=== PATIENT | female | born 1985 | race Caucasian/White ===

== ENCOUNTER 2018-05-27 17:21 | Emergency (ER) | payer SELFPAY ==
[2016-11-25 11:00] VITALS: BP 140/100
[~2018-05-27 17:21] MED LIST: ACET325T9 PO; ALPR0.5T6 PO; ASPI1TAB62 PO; CEPH500C PO; METO-269 PO; NAPR-682 PO; PROM12.56 PO; TRAM-48 PO
[2018-05-27] MEDS ORDERED: AZIT250T6 PO (20:33)
[2018-05-27] MEDS ORDERED: PROAIR HFA8.5 GM INH (20:33)
== END 2018-05-27 17:47 | disposition left against medical advice (07) ==
LOC: ER 17:21
DX: R05 Cough (principal); Z53.21 Procedure and treatment not carried out due to patient leaving prior to being seen by health care provider

== ENCOUNTER 2018-05-27 19:07 | Emergency (ER) | payer SELFPAY ==
[~2018-05-27] VITALS: Ht 165.1 cm; Wt 86.2 kg
[2018-05-27] MEDS: IPRATRPIUM/ALBUTEROL 0.5/2.5MG 3 ML NEBU. NEB ONE (20:11)
--- NOTE | 2018-05-27 20:19 | PHYS DOC ---
Past Medical History Past Medical History: Asthma, Other Additional Past Medical Histor: endometriosis; prolonged QT, uncontrolled HTN Past Surgical History: Tonsillectomy, Tubal ligation, Other Additional Past Surgical Histo: left ankle surgery, d&C Alcohol Use: Occasionally Drug Use: Marijuana Adult General Chief Complaint Chief Complaint: HYPERTENSION HPI HPI Patient is a 33 year old female who presents with her daughter and mother both diagnosed with bacterial pneumonia today. She then stated that she tried to get into see her mom's doctor but they could not get her into next week. Patient states that the last 7 days she's had a cough producing yellow thick phlegm, body aches, headache, chills. Patient states she hasn't been taking anything. Patient states that she has history of asthma so she's been using her albuterol inhaler but states she is only been having to use it about twice a week. Patient states she also has a history of hypertension and anxiety. Patient states that she has a very high blood pressure when she [facility] So she decided to come to the ED. Patient does state that she has right mid chest pain has been there for over a week. Review of Systems Review of Systems Constitutional: Denies fever. chills [] Eyes: Denies change in visual acuity, redness, or eye pain [] HENT: Denies nasal congestion or sore throat [] Respiratory: cough and shortness of breath [] Cardiovascular: No additional information not addressed in HPI [] GI: Denies abdominal pain, nausea, vomiting, bloody stools or diarrhea [] : Denies dysuria or hematuria [] Musculoskeletal: Denies back pain or joint pain [] Integument: Denies rash or skin lesions [] Neurologic: Denies headache, focal weakness or sensory changes [] Endocrine: Denies polyuria or polydipsia [] All other systems were reviewed and found to be within normal limits, except as documented in this note. Current Medications Current Medications Current Medications Medications (Trade) Dose Ordered Sig/Heber Start Time Stop Time Status Last Admin Dose Admin Albuterol/ Ipratropium (Duoneb) 3 ml 1X ONCE 05/27/18 20:15 05/27/18 20:16 DC 05/27/18 20:11 3 ML Dexamethasone (Decadron) 8 mg 1X ONCE 05/27/18 20:15 05/27/18 20:16 DC Allergies Allergies Allergies Coded Allergies Type Severity Reaction Last Updated Verified No Known Drug Allergies 07/09/15 No Physical Exam Physical Exam Constitutional: Well developed, well nourished, no acute distress, non-toxic appearance. [] HENT: Normocephalic, atraumatic, bilateral external ears normal, oropharynx moist, no oral exudates, nose normal. [] Eyes: PERRLA, EOMI, conjunctiva normal, no discharge. [] Neck: Normal range of motion, no tenderness, supple, no stridor. [] Cardiovascular:Heart rate regular rhythm, no murmur [] Lungs & Thorax: Bilateral breath sounds expiratory wheezes throughout. [] Abdomen: Bowel sounds normal, soft, no tenderness, no masses, no pulsatile masses. [] Skin: Warm, dry, no erythema, no rash. [] Back: No tenderness, no CVA tenderness. [] Extremities: No tenderness, no cyanosis, no clubbing, ROM intact, no edema. [] Neurologic: Alert and oriented X 3, normal motor function, normal sensory function, no focal deficits noted. [] Psychologic: Affect normal, judgement normal, mood normal. [] Current Patient Data Vital Signs Vital Signs Date Time Temp Pulse Resp B/P (MAP) Pulse Ox O2 Delivery O2 Flow Rate FiO2 05/27/18 20:11 Room Air 05/27/18 19:18 98.3 90 18 174/106 (128) 98 98.3 EKG EKG Sinus Rhythm, no stemi[] Interpretation Time: [address] Esparza Radiology/Procedures Radiology/Procedures Chest xray Impressions: [facility] [address] [place], [place] [id number] IMAGING REPORT Signed PATIENT: LILIANA MAGDALENO ACCOUNT: [id number] : 1985 LOCATION: ER AGE: 33 SEX: F EXAM STATUS: REG ER ORD. PHYSICIAN: LUIS ENRIQUE CHENEY APRN REASON: COUGH, SOA PROCEDURE: CHEST PA & LATERAL PROCEDURE: CHEST PA LATERAL CLINICAL INDICATION: Cough with chest pain and short of breath x a week COMPARISON: 11/23/2016 FINDINGS: No pneumothorax identified. Cardiac and mediastinal contours unremarkable. No pulmonary consolidation or acute airspace disease. No acute osseous abnormalities identified. IMPRESSION: No pulmonary consolidation or acute airspace disease. Electronically signed by: Levi Acharya DO (05/27/2018 8:18 PM) [facility] DICTATED and SIGNED BY: LEVI ACHARYA DO DATE: 05/27/182016 Course & Med Decision Making Course & Med Decision Making Patient is a 33 year old female who presents with her daughter and mother both diagnosed with bacterial pneumonia today. She then stated that she tried to get into see her mom's doctor but they could not get her into next week. Patient states that the last 7 days she's had a cough producing yellow thick phlegm, body aches, headache, chills. Patient states she hasn't been taking anything. Patient states that she has history of asthma so she's been using her albuterol inhaler but states she is only been having to use it about twice a week. Patient states she also has a history of hypertension and anxiety. Patient states that she has a very high blood pressure when she [facility] So she decided to come to the ED. Patient does state that she has right mid chest pain has been there for over a week. Expiratory wheezes throughout all lung landers. Heart rate regular without murmur. EKG shows normal sinus rhythm and no STEMI. Blood pressure is currently 174/106. 99% on room air and a heart rate of 80. Patient is told that she pressure needs to start going back to a doctor and been put back on her hypertensive medications. She has no extremity edema. Patient states that she is not really here for her high blood pressure she is only here because she wants to make sure she doesn't have pneumonia. Patient is alert and oriented. Skin is warm and dry. Chest xray shows no acute findings. Patient will be diagnosed with probable bronchitis. I will give her antibiotic and a prescription for pro air. Ravin Disclaimer Shadion Disclaimer This electronic medical record was generated, in whole or in part, using a voice recognition dictation system. Departure Departure Impression: Primary Impression: Bronchitis Disposition: HOME, SELF-CARE Condition: STABLE Referrals: NO PCP (PCP) Patient Instructions: Acute Bronchitis Additional Instructions: Follow up with a primary care as soon as possible for continuation of care for your hypertension ans asthma. Stop smoking. Scripts Albuterol Sulfate (PROAIR HFA INHALER) 8.5 Gm Hfa.aer.ad 1 PUFF INH PRN Q6HRS PRN for SHORTNESS OF BREATH, #1 INHALER 0 Refills Prov: LUIS ENRIQUE CHENEY APRN 05/27/18 Azithromycin (AZITHROMYCIN TABLET) 250 Mg Tablet 1 PKG PO UD, #6 TAB Prov: LUIS ENRIQUE CHENEY APRN 05/27/18 LUIS ENRIQUE CHENEY APRN May 27, 2018 20:19
[2018-05-27] MEDS: DEXAMETHASONE 4 MG TABLET PO ONE (20:33)
[2018-05-27] MEDS ORDERED: PROAIR HFA8.5 GM INH (20:33)
[2018-05-27] MEDS ORDERED: AZIT250T6 PO (20:33)
[2018-05-27 21:15] LABS: INFLUENZA A PATIENT NEGATIVE (NEGATIVE); INFLUENZA B PATIENT NEGATIVE (NEGATIVE)
[2018-05-27 21:18] VITALS: BP 110/56
--- NOTE | 2018-05-28 05:52 | EKG ---
[facility] [address] [place] [address] Test Date: 2018-05-27 Test Time: 19:34:44 Pat Name: LILIANA MAGDALENO Department: Room: Gender: F Tool Machine Setup Operator: : 1985 Requested By: LUIS ENRIQUE CHENEY Order Number: [id number] Reading MD: Jose Alfredo Hamlin Measurements Intervals [place] Rate: 80 P: 25 MA: 140 QRS: 16 QRSD: 94 T: 8 QT: 378 QTc: 440 Interpretive Statements SINUS RHYTHM NO SPECIFIC ECG ABNORMALITIES Electronically Signed On 06-03-2018 11:03:45 DIRECTOR OF CARDIOLOGY by Jose Alfredo Hamlin
== END 2018-05-27 21:43 | disposition home or self-care (01) ==
LOC: ER 19:07
DX: J40 Bronchitis, not specified as acute or chronic (principal); J45.909 Unspecified asthma, uncomplicated; I10 Essential (primary) hypertension
CPT/HCPCS: 71046; 87804; 93005; 94640; 99284; J7620; J8540; 99283

== ENCOUNTER 2018-11-25 21:42 | Emergency (ER) | payer BC ==
[~2018-11-25] VITALS: Ht 165.1 cm; Wt 104.3 kg
[~2018-11-25 21:42] MED LIST changes: +ALBU2.5V8 INH; +AZIT250T6 PO; -PROM12.56 PO; +PROM12.58 PO
[2018-11-25 21:50] VITALS: BP 203/122
[2018-11-25] MEDS ORDERED: LIDO:MAALOX 1:1 20 ML SINGLE DOSE. SWSW ONE (22:30)
[2018-11-25] MEDS ORDERED: FAMOTIDINE 20 MG/2 ML VIAL IVP ONE (22:30)
--- NOTE | 2018-11-25 22:50 | RAD ---
EXAM: Abdomen sonogram. HISTORY: Pain. TECHNIQUE: Sonographic imaging of the abdomen was performed. COMPARISON: None. FINDINGS: The liver is enlarged. There is hepatic steatosis. No focal hepatic lesion is seen. The gallbladder is contracted, limiting evaluation. The common bile duct is normal in caliber. The right kidney, pancreas, aorta and inferior vena cava are unremarkable. IMPRESSION: 1. Hepatomegaly and hepatic steatosis. 2. Contracted gallbladder due to the postprandial status the patient. This limits evaluation. Electronically signed by: Sari Diaz MD (11/25/2018 10:47 PM) [facility]
[2018-11-25 22:58] LABS: BASO # 0.1 x10^3/uL (0.0-0.2); BASO % 1 % (0-3); EOS # 0.6 x10^3/uL (0.0-0.7); EOS % 6 % (0-3); HEMATOCRIT 40.2 % (36.0-47.0); HEMOGLOBIN 13.9 g/dL (12.0-15.5); LYMPH # 3.9 x10^3/uL (1.0-4.8); LYMPH % 41 % (24-48); MEAN CORPUSCULAR HEMOGLOBIN 32 pg (25-35); MEAN CORPUSCULAR HGB CONC 35 g/dL (31-37); MEAN CORPUSCULAR VOLUME 93 fL (79-100); MONO # 0.5 x10^3/uL (0.0-1.1); MONO % 5 % (0-9); NEUT # 4.5 x10^3uL (1.8-7.7); NEUT % 47 % (31-73); PLATELET COUNT 260 x10^3/uL (140-400); RED BLOOD COUNT 4.35 x10^6/uL (3.50-5.40); RED CELL DISTRIBUTION WIDTH 12.7 % (11.5-14.5); WHITE BLOOD COUNT 9.6 x10^3/uL (4.0-11.0)
--- NOTE | 2018-11-25 23:21 | PHYS DOC ---
Past Medical History Past Medical History: Asthma, Other Additional Past Medical Histor: endometriosis; prolonged QT, uncontrolled HTN Past Surgical History: Tonsillectomy, Tubal ligation, Other Additional Past Surgical Histo: left ankle surgery, d&C Alcohol Use: Occasionally Drug Use: Marijuana Adult General Chief Complaint Chief Complaint: ABDOMINAL PAIN HPI HPI 33-year-old female presents with epigastric pain. She states been going on for several days. She states she has a burning sensation that radiates up into her chest and she has a sour taste in her mouth when she wakes up in the morning. She states this is been going on for quite some time. As of breath. She denies any melena or hematemesis. She states she's had her gallbladder looked at a long time ago but this turned up negative.[] Review of Systems Review of Systems Constitutional: Denies fever or chills [] Eyes: Denies change in visual acuity, redness, or eye pain [] HENT: Denies nasal congestion or sore throat [] Respiratory: Denies cough or shortness of breath [] Cardiovascular: No additional information not addressed in HPI [] GI: Per history of present illness[] : Denies dysuria or hematuria [] Musculoskeletal: Denies back pain or joint pain [] Integument: Denies rash or skin lesions [] Neurologic: Denies headache, focal weakness or sensory changes [] Endocrine: Denies polyuria or polydipsia [] All other systems were reviewed and found to be within normal limits, except as documented in this note. Current Medications Current Medications Current Medications Medications (Trade) Dose Ordered Sig/Heber Start Time Stop Time Status Last Admin Dose Admin Famotidine (Pepcid Vial) 20 mg 1X ONCE 11/25/18 22:30 11/25/18 22:31 DC 11/25/18 22:48 20 MG Multi-Ingredient Mouthwash/Gargle (Gi Cocktail) 20 ml 1X ONCE 11/25/18 22:30 11/25/18 22:31 DC 11/25/18 22:48 20 ML Allergies Allergies Allergies Coded Allergies Type Severity Reaction Last Updated Verified No Known Drug Allergies 07/09/15 No Physical Exam Physical Exam Constitutional: Well developed, well nourished, no acute distress, non-toxic appearance. [] HENT: Normocephalic, atraumatic, bilateral external ears normal, oropharynx moist, no oral exudates, nose normal. [] Eyes: PERRLA, EOMI, conjunctiva normal, no discharge. [] Neck: Normal range of motion, no tenderness, supple, no stridor. [] Cardiovascular:Heart rate regular rhythm, no murmur [] Lungs & Thorax: Bilateral breath sounds clear to auscultation [] Abdomen: Mild epigastric tender to palp negative Odonnell's[] Skin: Warm, dry, no erythema, no rash. [] Back: No tenderness, no CVA tenderness. [] Extremities: No tenderness, no cyanosis, no clubbing, ROM intact, no edema. [] Neurologic: Alert and oriented X 3, normal motor function, normal sensory function, no focal deficits noted. [] Psychologic: Anxious. [] Current Patient Data Vital Signs Vital Signs Date Time Temp Pulse Resp B/P (MAP) Pulse Ox O2 Delivery O2 Flow Rate FiO2 11/25/18 21:50 98.1 86 24 203/122 (149) 98 Room Air 98.1 Lab Values Laboratory Tests Test 11/25/18 21:51 11/25/18 22:43 11/25/18 23:45 POC Urine HCG, Qualitative Hcg negative (Negative) White Blood Count 9.6 x10^3/uL (4.0-11.0) Red Blood Count 4.35 x10^6/uL (3.50-5.40) Hemoglobin 13.9 g/dL (12.0-15.5) Hematocrit 40.2 % (36.0-47.0) Mean Corpuscular Volume 93 fL (79-100) Mean Corpuscular Hemoglobin 32 pg (25-35) Mean Corpuscular Hemoglobin Concent 35 g/dL (31-37) Red Cell Distribution Width 12.7 % (11.5-14.5) Platelet Count 260 x10^3/uL (140-400) Neutrophils (%) (Auto) 47 % (31-73) Lymphocytes (%) (Auto) 41 % (24-48) Monocytes (%) (Auto) 5 % (0-9) Eosinophils (%) (Auto) 6 % (0-3) H Basophils (%) (Auto) 1 % (0-3) Neutrophils # (Auto) 4.5 x10^3uL (1.8-7.7) Lymphocytes # (Auto) 3.9 x10^3/uL (1.0-4.8) Monocytes # (Auto) 0.5 x10^3/uL (0.0-1.1) Eosinophils # (Auto) 0.6 x10^3/uL (0.0-0.7) Basophils # (Auto) 0.1 x10^3/uL (0.0-0.2) Sodium Level 141 mmol/L (136-145) Potassium Level 4.0 mmol/L (3.5-5.1) Chloride Level 106 mmol/L (98-107) Carbon Dioxide Level 24 mmol/L (21-32) Anion Gap 11 (6-14) Blood Urea Nitrogen 12 mg/dL (7-20) Creatinine 0.8 mg/dL (0.6-1.0) Estimated GFR (Cockcroft-Gault) 83.1 BUN/Creatinine Ratio 15 (6-20) Glucose Level 88 mg/dL (70-99) Calcium Level 8.6 mg/dL (8.5-10.1) Total Bilirubin 0.2 mg/dL (0.2-1.0) Aspartate Amino Transferase (AST) 13 U/L (15-37) L Alanine Aminotransferase (ALT) 37 U/L (14-59) Alkaline Phosphatase 61 U/L (46-116) Total Protein 6.1 g/dL (6.4-8.2) L Albumin 3.4 g/dL (3.4-5.0) Albumin/Globulin Ratio 1.3 (1.0-1.7) Lipase 205 U/L (73-393) Laboratory Tests 11/25/18 22:43 Laboratory Tests 11/25/18 23:45 EKG EKG [] Radiology/Procedures Radiology/Procedures [] Impressions: STATUS: REG ERORD. PHYSICIAN: ESTRADA WILDER DO REASON: RUQ Pain PROCEDURE: ABDOMEN LTD EXAM: Abdomen sonogram. HISTORY: Pain. TECHNIQUE: Sonographic imaging of the abdomen was performed. COMPARISON: None. FINDINGS: The liver is enlarged. There is hepatic steatosis. No focal hepatic lesion is seen. The gallbladder is contracted, limiting evaluation. The common bile duct is normal in caliber. The right kidney, pancreas, aorta and inferior vena cava are unremarkable. IMPRESSION: 1. Hepatomegaly and hepatic steatosis. 2. Contracted gallbladder due to the postprandial status the patient. This limits evaluation. Course & Med Decision Making Course & Med Decision Making Pertinent Labs and Imaging studies reviewed. (See chart for details) [] Dragon Disclaimer Dragon Disclaimer This electronic medical record was generated, in whole or in part, using a voice recognition dictation system. Departure Departure Impression: Primary Impression: Abdominal pain Additional Impression: Hypertension Referrals: NO PCP (PCP) Patient Instructions: Gastritis, Adult Additional Instructions: Return to the emergency department with any new or concerning symptoms Scripts Lisinopril/Hydrochlorothiazide (LISINOPRIL-HCTZ 20-12.5 MG TAB) 1 Each Tablet 1 TAB PO DAILY, #30 TAB 5 Refills Prov: ESTRADA WILDER DO 11/26/18 Ranitidine Hcl (ZANTAC) 300 Mg Tablet 1 TAB PO QHS for reflux, #90 TAB 3 Refills Prov: ESTRADA WILDER DO 11/26/18 Problem Qualifiers Primary Impression: Abdominal pain Abdominal location: epigastric Qualified Codes: R10.13 - Epigastric pain Additional Impression: Hypertension Hypertension type: essential hypertension Qualified Codes: I10 - Essential (primary) hypertension ESTRADA WILDER DO Nov 25, 2018 23:21
[2018-11-25 23:54] LABS: CALCIUM 8.6 mg/dL (8.5-10.1); CREATININE 0.8 mg/dL (0.6-1.0); GFR 83.1
[2018-11-26] LABS: ALBUMIN 3.4 g/dL (3.4-5.0); ALBUMIN/GLOBULIN RATIO 1.3 (1.0-1.7); TOTAL BILIRUBIN 0.2 mg/dL (0.2-1.0); TOTAL PROTEIN 6.1 g/dL (6.4-8.2)
[2018-11-26] MEDS ORDERED: LISI1TAB5 PO (00:18)
[2018-11-26] MEDS ORDERED: RANI300T3 PO (00:18)
== END 2018-11-26 00:40 | disposition home or self-care (01) ==
LOC: ER 21:42
DX: R10.13 Epigastric pain (principal); K76.0 Fatty (change of) liver, not elsewhere classified; I10 Essential (primary) hypertension; J45.909 Unspecified asthma, uncomplicated; Z90.89 Acquired absence of other organs; Z98.51 Tubal ligation status
CPT/HCPCS: 36415; 76705; 80053; 81025; 83690; 85025; 96374; 99285; J3490

== ENCOUNTER 2019-11-10 16:38 | Emergency (ER) | payer SELFPAY ==
[~2019-11-10] VITALS: Ht 165.1 cm; Wt 86.0 kg
[~2019-11-10 16:38] MED LIST changes: +LISI1TAB19 PO; +RANI300T3 PO
[2019-11-10] MEDS ORDERED: TRAM50TA PO (17:01)
[2019-11-10] MEDS ORDERED: PRED-220 PO (17:01)
[2019-11-10] MEDS ORDERED: ACYC800T PO (17:01)
--- NOTE | 2019-11-10 17:01 | PHYS DOC ---
Past Medical History Past Medical History: Asthma, Other Additional Past Medical Histor: endometriosis; prolonged QT, uncontrolled HTN Past Surgical History: Tonsillectomy, Tubal ligation, Other Additional Past Surgical Histo: left ankle surgery, d&C Smoking Status: Current Every Day Smoker Alcohol Use: Occasionally Drug Use: Marijuana General Adult EDM: Chief Complaint: SKIN RASH/ABSCESS HPI: HPI: Patient is a 34 year old female who presents to the ED today complaining of a rash on her right buttock and lower abdomen that began yesterday, patient denies any fever. Review of Systems: Review of Systems: Constitutional: Denies fever or chills. [] Musculoskeletal: Denies back pain or joint pain. [] Integument: Reports rash. Neurologic: Denies headache, focal weakness or sensory changes. [] Psychiatric: Denies depression or anxiety. [] Heart Score: Risk Factors: Risk Factors: DM, Current or recent (<one month) smoker, HTN, HLP, family history of CAD, obesity. Risk Scores: Score 0 - 3: 2.5% MACE over next 6 weeks - Discharge Home Score 4 - 6: 20.3% MACE over next 6 weeks - Admit for Clinical Observation Score 7 - 10: 72.7% MACE over next 6 weeks - Early Invasive Strategies Allergies: Allergies: Allergies Coded Allergies Type Severity Reaction Last Updated Verified No Known Drug Allergies 07/09/15 No Physical Exam: PE: Constitutional: Well developed, well nourished, no acute distress, non-toxic appearance. [] Abdomen: Bowel sounds normal, soft, no tenderness, no masses, no pulsatile masses. [] Skin: Warm, dry, right lateral hip/buttock region and right lower quadrant with grouped erythematous lesions consistent with shingles. Back: No tenderness, no CVA tenderness. [] Extremities: No tenderness, no cyanosis, no clubbing, ROM intact, no edema. [] Neurologic: Alert and oriented X 3, normal motor function, normal sensory function, no focal deficits noted. [] Psychologic: Affect normal, judgement normal, mood normal. [] EKG: EKG: [] Radiology/Procedures: Radiology/Procedures: [] Course & Med Decision Making: Course & Med Decision Making Pertinent Labs and Imaging studies reviewed. (See chart for details) This is a 34-year-old female patient with shingles. Discharged with acyclovir prednisone and tramadol. Follow-up with PCP in 2 weeks. Ravin Disclaimer: Ravin Disclaimer: This electronic medical record was generated, in whole or in part, using a voice recognition dictation system. Departure Departure Impression: Primary Impression: Shingles Qualified Codes: B02.9 - Zoster without complications Disposition: 01 HOME, SELF-CARE Condition: STABLE Referrals: NO PCP (PCP) follow with your doctor in 2 weeks Patient Instructions: Shingles, [id number] Additional Instructions: You were seen for shingles. Take the prescribed medications as ordered, follow- up with your doctor in 1 to 2 weeks. Scripts Prednisone (PREDNISONE ) 10 Mg Tablet 10 MG PO UD for PREDNISONE TAPER, #39 TAB 0 Refills Take 3 tablets by mouth twice a day for 3 days, then take 2 tablets by mouth twice a day for 3 days, then take 1 tablet by mouth twice a day for 3 days, then take 1 tablet by mouth daily x 3 days, then stop. Prov: MARIA EUGENIA MCMAHON APRN 520/20 Acyclovir (ACYCLOVIR) 800 Mg Tablet 1 TAB PO 5XDAY, #50 TAB Prov: MARIA EUGENIA MCMAHON APRN 5/20/20 Tramadol Hcl (TRAMADOL HCL) 50 Mg Tablet 50 MG PO Q6HRS PRN for PAIN, #30 TAB Prov: MARIA EUGENIA MCMAHON APRN 20/20 MARIA EUGENIA MCMAHON APRN November 10, 2019 17:01
[2019-11-10 17:03] VITALS: BP 161/105
== END 2019-11-10 17:12 | disposition home or self-care (01) ==
LOC: ER 16:38
DX: B02.9 Zoster without complications (principal); L53.9 Erythematous condition, unspecified; J45.909 Unspecified asthma, uncomplicated; F17.200 Nicotine dependence, unspecified, uncomplicated; F12.90 Cannabis use, unspecified, uncomplicated; I10 Essential (primary) hypertension; Z90.89 Acquired absence of other organs; Z98.51 Tubal ligation status; Z98.890 Other specified postprocedural states
CPT/HCPCS: 99283

== ENCOUNTER 2019-12-01 16:41 | Emergency (ER) | payer SELFPAY ==
[~2019-12-01] VITALS: Ht 165.1 cm; Wt 88.6 kg
[~2019-12-01 16:41] MED LIST changes: +ACYC800T PO; +PRED-220 PO; +TRAM50TA PO
[2019-12-01 17:54] LABS: BASO # 0.1 x10^3/uL (0.0-0.2); BASO % 1 % (0-3); EOS % 0 % (0-3); HEMATOCRIT 43.8 % (36.0-47.0); LYMPH # 1.9 x10^3/uL (1.0-4.8); LYMPH % 21 % (24-48); MEAN CORPUSCULAR HEMOGLOBIN 33 pg (25-35); MEAN CORPUSCULAR HGB CONC 34 g/dL (31-37); MEAN CORPUSCULAR VOLUME 97 fL (79-100); MONO # 0.3 x10^3/uL (0.0-1.1); MONO % 3 % (0-9); NEUT # 6.8 x10^3/uL (1.8-7.7); NEUT % 75 % (31-73); PLATELET COUNT 280 x10^3/uL (140-400); RED BLOOD COUNT 4.53 x10^6/uL (3.50-5.40); RED CELL DISTRIBUTION WIDTH 13.1 % (11.5-14.5); WHITE BLOOD COUNT 9.1 x10^3/uL (4.0-11.0)
[2019-12-01 18:06] LABS: CALCIUM 8.3 mg/dL (8.5-10.1); GFR 63.9; POTASSIUM 3.9 mmol/L (3.5-5.1)
[2019-12-01 18:21] LABS: CREATINE KINASE 59 U/L (26-192)
[2019-12-01 18:25] LABS: ALBUMIN 3.4 g/dL (3.4-5.0); ALBUMIN/GLOBULIN RATIO 1.1 (1.0-1.7); C-REACTIVE PROTEIN 3.7 mg/L (0-3.3); MAGNESIUM 1.8 mg/dL (1.8-2.4); TOTAL BILIRUBIN 0.2 mg/dL (0.2-1.0); TOTAL PROTEIN 6.4 g/dL (6.4-8.2)
--- NOTE | 2019-12-01 18:54 | RAD ---
Study: CR PORTABLE CHEST 1V Indication: Shortness of air. Comparison: 05/27/2018 Findings: Unchanged cardiomediastinal silhouette and eduin. No lobar consolidation, pleural effusion or pneumothorax. Impression: No acute radiographic abnormality of the chest. No significant change since 05/27/2018. Electronically signed by: HOLLIE LOCKE MD (12/01/2019 6:51 PM) [id number]
[2019-12-01 19:30] VITALS: BP 190/115
[2019-12-01] MEDS ORDERED: cloNIDine HCL 0.1 MG TABLET PO ONE (19:30)
[2019-12-01] MEDS ORDERED: ACETAMINOPHEN 325 MG TABLET. PO ONE (19:30)
[2019-12-01] MEDS ORDERED: VENTOLIN HFA18 GM INH (20:07)
--- NOTE | 2019-12-01 20:08 | PHYS DOC ---
Past Medical History Past Medical History: Asthma, Hypertension, Other Additional Past Medical Histor: endometriosis; prolonged QT, uncontrolled HTN Past Surgical History: Tonsillectomy, Tubal ligation, Other Additional Past Surgical Histo: left ankle surgery, d&C Smoking Status: Current Every Day Smoker Alcohol Use: Occasionally Drug Use: Marijuana General Adult EDM: Chief Complaint: SHORTNESS OF BREATH HPI: HPI: Patient is a 34 year old female with history of asthma, HTN who presents to the ED today with multiple complaints including shortness of breath, cough, headache, dizziness, weakness, symptoms began yesterday. Patient is very concerned she has COVID19, she states she works at [employer] with multiple employees that are positive for COVID19. She states one of the employees was admitted at [facility] today. She states her job refused to pay for some of her testing, they sent her to an outpatient drive-through test area, she somehow went to the health department who sent her to the ED. Patient appears anxious. Review of Systems: Review of Systems: Constitutional: Reports weakness. Denies fever or chills. [] Eyes: Denies change in visual acuity. [] HENT: Denies nasal congestion or sore throat. [] Respiratory: reports cough and shortness of breath. [] Cardiovascular: Denies chest pain or edema. [] GI: Denies abdominal pain, nausea, vomiting, bloody stools or diarrhea. [] : Denies dysuria. [] Musculoskeletal: Denies back pain or joint pain. [] Integument: Denies rash. [] Neurologic: Reports dizziness. Denies headache, focal weakness or sensory changes. [] Endocrine: Denies polyuria or polydipsia. [] Lymphatic: Denies swollen glands. [] Psychiatric: appears anxious Heart Score: Risk Factors: Risk Factors: DM, Current or recent (<one month) smoker, HTN, HLP, family history of CAD, obesity. Risk Scores: Score 0 - 3: 2.5% MACE over next 6 weeks - Discharge Home Score 4 - 6: 20.3% MACE over next 6 weeks - Admit for Clinical Observation Score 7 - 10: 72.7% MACE over next 6 weeks - Early Invasive Strategies Current Medications: Current Medications Medications (Trade) Dose Ordered Sig/Heber Start Time Stop Time Status Last Admin Dose Admin Acetaminophen (Tylenol) 650 mg 1X ONCE 12/01/19 19:30 6/10/20 19:31 DC 12/01/19 19:30 650 MG Clonidine HCl (Catapres) 0.1 mg 1X ONCE 12/01/19 19:30 12/01/19 19:31 DC 12/01/19 19:30 0.1 MG Allergies: Allergies: Allergies Coded Allergies Type Severity Reaction Last Updated Verified No Known Drug Allergies 07/09/15 No Physical Exam: PE: Constitutional: Well developed, well nourished, no acute distress, non-toxic appearance. [] HENT: Normocephalic, atraumatic, bilateral external ears normal, oropharynx moist, no oral exudates, nose normal. [] Eyes: PERRLA, EOMI, conjunctiva normal, no discharge. [] Neck: Normal range of motion, no tenderness, supple, no stridor. [] Cardiovascular:Heart rate regular rhythm, no murmur [] Lungs & Thorax: Bilateral breath sounds clear to auscultation [] Abdomen: Bowel sounds normal, soft, no tenderness, no masses, no pulsatile masses. [] Skin: Warm, dry, no erythema, no rash. [] Back: No tenderness, no CVA tenderness. [] Extremities: No tenderness, no cyanosis, no clubbing, ROM intact, no edema. [] Neurologic: Alert and oriented X 3, normal motor function, normal sensory function, no focal deficits noted. [] Psychologic: Affect normal, judgement normal, mood normal. [] Current Patient Data: Labs: Laboratory Tests Test 12/01/19 17:30 White Blood Count 9.1 x10^3/uL (4.0-11.0) Red Blood Count 4.53 x10^6/uL (3.50-5.40) Hemoglobin 15.0 g/dL (12.0-15.5) Hematocrit 43.8 % (36.0-47.0) Mean Corpuscular Volume 97 fL (79-100) Mean Corpuscular Hemoglobin 33 pg (25-35) Mean Corpuscular Hemoglobin Concent 34 g/dL (31-37) Red Cell Distribution Width 13.1 % (11.5-14.5) Platelet Count 280 x10^3/uL (140-400) Neutrophils (%) (Auto) 75 % (31-73) H Lymphocytes (%) (Auto) 21 % (24-48) L Monocytes (%) (Auto) 3 % (0-9) Eosinophils (%) (Auto) 0 % (0-3) Basophils (%) (Auto) 1 % (0-3) Neutrophils # (Auto) 6.8 x10^3/uL (1.8-7.7) Lymphocytes # (Auto) 1.9 x10^3/uL (1.0-4.8) Monocytes # (Auto) 0.3 x10^3/uL (0.0-1.1) Eosinophils # (Auto) 0.0 x10^3/uL (0.0-0.7) Basophils # (Auto) 0.1 x10^3/uL (0.0-0.2) Sodium Level 141 mmol/L (136-145) Potassium Level 3.9 mmol/L (3.5-5.1) Chloride Level 106 mmol/L (98-107) Carbon Dioxide Level 22 mmol/L (21-32) Anion Gap 13 (6-14) Blood Urea Nitrogen 12 mg/dL (7-20) Creatinine 1.0 mg/dL (0.6-1.0) Estimated GFR (Cockcroft-Gault) 63.9 BUN/Creatinine Ratio 12 (6-20) Glucose Level 134 mg/dL (70-99) H Calcium Level 8.3 mg/dL (8.5-10.1) L Magnesium Level 1.8 mg/dL (1.8-2.4) Ferritin 93 ng/mL (8-252) Total Bilirubin 0.2 mg/dL (0.2-1.0) Aspartate Amino Transferase (AST) 19 U/L (15-37) Alanine Aminotransferase (ALT) 51 U/L (14-59) Alkaline Phosphatase 69 U/L (46-116) Creatine Kinase 59 U/L (26-192) Creatine Kinase MB (Mass) 0.6 ng/mL (0.0-3.6) Creatine Kinase MB Relative Index % (0-4) Troponin I Quantitative < 0.017 ng/mL (0.000-0.055) C-Reactive Protein, Quantitative 3.7 mg/L (0-3.3) H UK-Ucc-G-Type Natriuretic Peptide 340 pg/mL (0-124) H Total Protein 6.4 g/dL (6.4-8.2) Albumin 3.4 g/dL (3.4-5.0) Albumin/Globulin Ratio 1.1 (1.0-1.7) Thyroid Stimulating Hormone (TSH) 0.709 uIU/mL (0.358-3.74) Laboratory Tests 12/01/19 17:30 Laboratory Tests 12/01/19 17:30 Vital Signs: Vital Signs Date Time Temp Pulse Resp B/P (MAP) Pulse Ox O2 Delivery O2 Flow Rate FiO2 12/01/19 19:30 91 190/115 12/01/19 17:15 98.2 20 97 Room Air 98.2 EKG: EKG: [] Radiology/Procedures: Radiology/Procedures: []PROCEDURE: PORTABLE CHEST 1V Study: CR PORTABLE CHEST 1V Indication: Shortness of air. Comparison: 05/27/2018 Findings: Unchanged cardiomediastinal silhouette and eduin. No lobar consolidation, pleural effusion or pneumothorax. Impression: No acute radiographic abnormality of the chest. No significant change since 05/27/2018. Electronically signed by: HOLLIE LOCKE MD (12/01/2019 6:51 PM) [id number] DICTATED and SIGNED BY: HOLLIE LOCKE MD DATE: 12/01/19 185 Course & Med Decision Making: Course & Med Decision Making Pertinent Labs and Imaging studies reviewed. (See chart for details) This is a 34 year old female with history of asthma, HTN who presents to the ED today with multiple complaints including shortness of breath, cough, headache, dizziness, weakness, symptoms began yesterday. Patient is very concerned she has COVID19 because she works at [employer] and some employees are positive. Chest x-ray interpreted by radiologist as negative for any acute findings. CBC, CMP, ferritin, CRP-no acute findings. COVID19 testing pending. Patient arrives in the ED with O2 sats at 99% on room air. Blood pressure 179/110 with a heart rate of 107. I went to give patient results with the nurse. Patient was heated arguing stating she should not be sent home because she thinks she could have COVID19 and will be spreading it at home including infecting her son and the community. Informed patient when we send patient's at home with COVID19 test pending we instruct them to quarantine themselves at home and try to be away from the rest of the family members. Informed patient she does not meet criteria for admission considering her O2 sats of 99% on room air. She started complaining we did not do anything for her blood pressure. Offered her clonidine. She started refusing it stating she does not take it because it causes QT elongation. Informed patient this is a one-time low dose of clonidine. She argued for a while then she took the medicine. She then stated she cannot go home because we did not treat her pain. She had shingles almost a month ago and has pain from that. Informed her we can give her Tylenol for her pain. Patient continues to be heated asking why the other workmate that was seen in the ED earlier was admitted and why she is not being admitted. Informed patient every COVID19 patient has different symptoms. The severity of the symptoms decides if patient is admitted or not, informed her, her symptoms are not severe neither do we have proof she has COVID19. Informed her that typically people admitted in the hospital are critically ill. She eventually left. We gave her paperwork with the follow-up doctors Before she left she started complaining that she does not know if she will ever know the results she needs a phone number to call. Informed patient the hospital will call her if she is positive for COVID 19 but we do not admit PUI patients that are not critical. Of note this patient walked out of this ED with no signs of distress. She was actually demanding her paperwork and complaining stating she needs somewhere to take her complaints. Ravin Disclaimer: Ravin Disclaimer: This electronic medical record was generated, in whole or in part, using a voice recognition dictation system. Departure Departure Impression: Primary Impression: Cough Additional Impressions: Shortness of breath Dizziness Hypertension Qualified Codes: I10 - Essential (primary) hypertension Person under investigation for COVID-19 Disposition: HOME, SELF-CARE Condition: STABLE Referrals: NO PCP (PCP) follow up with your doctor as soon as you can Patient Instructions: Cough, Adult, [id number], Shortness of Breath Additional Instructions: Your COVID19 testing is pending. Please quarantine yourself for 14 days or until you hear from the hospital regarding your results. Use breathing t reatments as needed at home. Continue taking your blood pressure medicine and follow-up with your own primary care doctor in the next 1 to 2 weeks. Scripts Albuterol Sulfate (VENTOLIN HFA INHALER) 18 Gm Hfa.aer.ad 2 PUFF INH Q4HRS for FOR ASTHMA, #1 INHALER 0 Refills Prov: MARIA EUGENIA MCMAHON APRN 12/01/19 Justicifation of Admission Dx: Justifications for Admission: Justification of Admission Dx: N/A MARIA EUGENIA MCMAHON APRN Dec 01, 2019 20:08
--- NOTE | 2019-12-02 06:39 | EKG ---
[facility] [address] [place] [address] Test Date: 2019-12-01 Test Time: 17:21:14 Pat Name: LILIANA MAGDALENO Department: Room: Gender: F Hooker Up: : 1985 Requested By: MARIA EUGENIA MCMAHON Order Number: [id number] Reading MD: Jose Alfredo Hamlin Measurements Intervals [place] Rate: 102 P: 38 NE: 140 QRS: 28 QRSD: 90 T: 16 QT: 366 QTc: 482 Interpretive Statements SINUS TACHYCARDIA NONSPECIFIC ST-T WAVE CHANGES. Electronically Signed On 12-03-2019 16:29:53 CDT by Jose Alfredo Hamlin
== END 2019-12-01 20:10 | disposition home or self-care (01) ==
LOC: ER 16:41
DX: R05 Cough (principal); Z20.828 Contact with and (suspected) exposure to other viral communicable diseases; R06.02 Shortness of breath; R42 Dizziness and giddiness; I10 Essential (primary) hypertension; R51 Headache; J45.909 Unspecified asthma, uncomplicated; F17.200 Nicotine dependence, unspecified, uncomplicated
CPT/HCPCS: 36415; 71045; 80053; 82553; 82728; 83735; 83880; 84443; 84484; 85025; 86140; 93005; 99285; U0003

== ENCOUNTER 2020-06-27 19:48 | Emergency (ER) | payer BC, OTHER ==
[~2020-06-27] VITALS: Ht 165.1 cm; Wt 87.0 kg
[~2020-06-27 19:48] MED LIST changes: -ACYC800T PO; +ACYC800T88 PO; -LISI1TAB19 PO; +LISI1TAB37 PO; +VENTOLIN HFA18 GM INH
[2020-06-27 19:57] VITALS: BP 155/92
[2020-06-27] MEDS ORDERED: HYDR-2761 PO (20:41)
[2020-06-27] MEDS ORDERED: CHLO15MO2 PO (20:41)
--- NOTE | 2020-06-27 20:41 | PHYS DOC ---
Past Medical History Past Medical History: Asthma, Hypertension, Other Additional Past Medical Histor: endometriosis; prolonged QT, uncontrolled HTN Past Surgical History: Tonsillectomy, Tubal ligation, Other Additional Past Surgical Histo: left ankle surgery, d&C Smoking Status: Current Every Day Smoker Alcohol Use: Occasionally Drug Use: Marijuana General Adult EDM: Chief Complaint: DENTAL PROBLEM HPI: HPI: Patient is a 35 year old female who presents with was eating a Triscuits about 30 minutes prior to arrival and her left upper molar split in half. She states that she never had a crown placed and the only left the " putty" in. She states this happened around 6 years ago. She states is very painful. She rates her pain an 8 out of 10. She states that she has dental insurance is going to see a dentist in the morning. Review of Systems: Review of Systems: Constitutional: Denies fever or chills. [] Eyes: Denies change in visual acuity. [] HENT: Denies nasal congestion or sore throat. + Dental pain [] Respiratory: Denies cough or shortness of breath. [] Cardiovascular: Denies chest pain or edema. [] GI: Denies abdominal pain, nausea, vomiting, bloody stools or diarrhea. [] : Denies dysuria. [] Musculoskeletal: Denies back pain or joint pain. [] Integument: Denies rash. [] Neurologic: Denies headache, focal weakness or sensory changes. [] Endocrine: Denies polyuria or polydipsia. [] Lymphatic: Denies swollen glands. [] Psychiatric: Denies depression or anxiety. [] Heart Score: Risk Factors: Risk Factors: DM, Current or recent (<one month) smoker, HTN, HLP, family history of CAD, obesity. Risk Scores: Score 0 - 3: 2.5% MACE over next 6 weeks - Discharge Home Score 4 - 6: 20.3% MACE over next 6 weeks - Admit for Clinical Observation Score 7 - 10: 72.7% MACE over next 6 weeks - Early Invasive Strategies Allergies: Allergies: Allergies Coded Allergies Type Severity Reaction Last Updated Verified No Known Drug Allergies 07/09/15 No Physical Exam: PE: Constitutional: Well developed, well nourished, no acute distress, non-toxic appearance. [] HENT: Normocephalic, atraumatic, bilateral external ears normal, oropharynx moist, no oral exudates, nose normal. Left upper molar split into and loose. [] Eyes: PERRLA, EOMI, conjunctiva normal, no discharge. [] Neck: Normal range of motion, no tenderness, supple, no stridor. [] Cardiovascular:Heart rate regular rhythm, no murmur [] Lungs & Thorax: Bilateral breath sounds clear to auscultation [] Abdomen: Bowel sounds normal, soft, no tenderness, no masses, no pulsatile masses. [] Skin: Warm, dry, no erythema, no rash. [] Back: No tenderness, no CVA tenderness. [] Extremities: No tenderness, no cyanosis, no clubbing, ROM intact, no edema. [] Neurologic: Alert and oriented X 3, normal motor function, normal sensory function, no focal deficits noted. [] Psychologic: Affect normal, judgement normal, mood normal. [] Current Patient Data: Vital Signs: Vital Signs Date Time Temp Pulse Resp B/P (MAP) Pulse Ox O2 Delivery O2 Flow Rate FiO2 06/27/20 19:57 98.3 87 20 155/92 (113) 97 Room Air 98.3 EKG: EKG: [] Radiology/Procedures: Radiology/Procedures: [] Course & Med Decision Making: Course & Med Decision Making Pertinent Labs and Imaging studies reviewed. (See chart for details) See HPI. Left upper molar splinting half but still connected at the root. No facial swelling. There is no bleeding or drainage from the tooth. No abscess formation. Patient is given Peridex and hydrocodone. [] Dragon Disclaimer: Dragon Disclaimer: This electronic medical record was generated, in whole or in part, using a voice recognition dictation system. Departure Departure Impression: Primary Impression: Pain, dental Disposition: HOME SELF CARE/HOMELESS Condition: STABLE Referrals: NO PCP (PCP) Patient Instructions: Dental Pain Additional Instructions: Take medication as prescribed. Do not drink, work or drive on pain medication as it will make you sleepy. Follow-up with a dentist as soon as possible. Scripts Hydrocodone Bit/Acetaminophen (HYDROCODONE-APAP 5-325 ) 1 Tab Tablet 1 TAB PO PRN Q6HRS PRN for PAIN, #10 TAB 0 Refills Prov: LUIS ENRIQUE CHENEY TELECOMMUNICATIONS ANALYST 06/27/20 Chlorhexidine Gluconate (PERIDEX) 15 Ml Mouthwash 15 ML PO BID for 30 Days, #946 ML 0 Refills Prov: LUIS ENRIQUE CHENEY APRN 06/27/20 LUIS ENRIQUE CHENEY APRN Jun 27, 2020 20:41
== END 2020-06-27 20:50 | disposition home or self-care (01) ==
LOC: ER 19:48
DX: K08.89 Other specified disorders of teeth and supporting structures (principal); I10 Essential (primary) hypertension; J45.909 Unspecified asthma, uncomplicated; F17.200 Nicotine dependence, unspecified, uncomplicated
CPT/HCPCS: 99283